=== PATIENT | male | born 1965 | race Caucasian/White ===

== ENCOUNTER → 2019-06-05 07:36 | Outpatient (CLI) | payer SELFPAY ==
--- NOTE | 2019-06-05 07:51 | CT_ITS ---
PROCEDURE: CT HEART W CALCIUM SCORE CLINICAL HISTORY: SCREENING COMPARISON: No exams were available for comparison TECHNIQUE: Axial images obtained with sagittal and coronal reformats. All CT scans at the facility use one or more dose reduction, viz: automated exposure control, ma/kV adjustment per patient size (including targeted exams where dose is matched to indication, i.e. head), or iterative reconstruction technique. FINDINGS: Coronary artery calcium score is 0. No identifiable calcific atherosclerotic plaque with very low cardiovascular disease risk. No pertinent incidental findings. IMPRESSION: No identifiable calcific plaque with very low cardiovascular disease risk Dictated by: Joel Pastor MD 06/05/2019 15:41 Electronically signed by Joel Pastor MD in [place] 06/05/2019 15:41
== END ==
PROVIDERS: PCP Family Medicine; Visit Provider Internal Medicine Cardiovascular Disease
DX: Z13.6 Encounter for screening for cardiovascular disorders (principal)
CPT/HCPCS: 75571